=== PATIENT | male | born 1960 | race Caucasian/White ===

== ENCOUNTER → 2018-10-17 | Outpatient (CLI) | payer SELFPAY ==
[~2018-10-17] MED LIST: CATHETER FLUSH 10 ML SYR IV PRN
--- NOTE | 2018-10-17 12:02 | Diagnostic Imaging Report ---
EXAMINATION: Gallbladder scintigraphy HISTORY: Right upper quadrant pain COMPARISON: None available TECHNIQUE: Anterior scintigraphic imaging of the abdomen was performed after the intravenous administration of 4.97 mCi Tc-99m Choletec. FINDINGS: The upper abdomen was imaged for 60 minutes with the gamma camera. There is prompt homogeneous uptake of radiopharmaceutical by the liver. There is activity in the common duct and gallbladder by 10 minutes. Small bowel activity is seen by 15 minutes. Between 45 and 60 minutes, the patient received 8 ounces ensure. After 60 minutes, the gallbladder ejection fraction was calculated to be 53% which is normal (>35%).. IMPRESSION: 1. Patent common and cystic bile ducts. 2. No gallbladder dysfunction. Dictated by: Dictated on workstation # [id number]
== END ==
LOC: CARD 09:20
PROVIDERS: ATTEND Family Medicine
DX: R10.11 Right upper quadrant pain (principal)
CPT/HCPCS: 78227